=== PATIENT | female | born 1995 | race Caucasian/White ===

== ENCOUNTER 2024-10-25 03:27 | Inpatient (IN) | payer OTHER, SELFPAY ==
[2024-10-25 03:34] VITALS: BMI 37.2
[2024-10-25 03:55] VITALS: BP 133/67
[2024-10-25 04:24] LABS: Hematocrit 32.6 % (37.0-47.0); Mean Corp Hgb Conc. 33.7 g/dL (33.0-37.0); Mean Corpuscular Hgb 30.8 pg (27.0-31.0); Mean Corpuscular Volume 91.3 fL (81.0-99.0); Mean Platelet Volume 10.7 fL (7.4-10.4); Platelet Count 221 10^3/uL (130-400); Red Blood Cell Count 3.57 10^6/uL (4.20-5.40); Red Cell Dist. Width 13.1 % (11.5-14.5); White Blood Cell Count 8.4 10^3/uL (4.8-10.8)
[2024-10-25] MEDS: TYLENOL 1000 MG PO (05:48)
[2024-10-25] MEDS: ANCEF 10 IV (05:48)
[2024-10-25] MEDS: BICITRA 30 ML PO (05:48)
[2024-10-25] MEDS: ZITHROMAX INFUSION 250 IV (05:49)
[2024-10-25 06:34] LABS: Cord ABG Comment CORD BLOOD
[2024-10-25 06:40] LABS: B.E. Cord ABG -1.4 mMOL/L; HCO3 Cord ABG 22.8 mmol/L; O2 Saturation % Cord ABG 54.3 %; PCO2 Cord ABG 36 mmHg; PO2 Cord ABG 25 mmHg; pH Cord ABG 7.41
[2024-10-25 06:43] LABS: B.E. Cord ABG -2.3 mMOL/L; PCO2 Cord ABG 52 mmHg; PO2 Cord ABG 23 mmHg; pH Cord ABG 7.29
[2024-10-25 06:44] LABS: O2 Saturation % Cord ABG 32.2 %
[2024-10-25] MEDS: PITOCIN 30 UNITS/NSS 500 ML IV (09:21)
[2024-10-25] MEDS: CELEXA 40 MG PO (10:23)
[2024-10-25] MEDS: PRENATAL PLUS 1 TABLET PO (10:26)
[2024-10-25] MEDS: TORADOL 15 MG IV ×3 (12:07→23:53)
--- NOTE | 2024-10-25 21:51 | W.PN.ANS.POP ---
Anesthesia Post Operative
- Anesthesia Post Op Note
Vital Signs Stable-See Nursing Note: Yes
Airway Patent: Yes
Adequate Pain Control: Yes
Change in Mental Status: No
Current Postoperative Nausea & Vomiting: No
Anesthesia Complications: No
General Anesthetic Recall: No
Unplanned Admission: No
Post Op Hydration Adequate: Yes
[2024-10-26 05:59] LABS: Hematocrit 27.4 % (37.0-47.0); Hemoglobin 9.7 g/dL (12.0-16.0); Mean Corp Hgb Conc. 35.4 g/dL (33.0-37.0); Mean Corpuscular Hgb 31.4 pg (27.0-31.0); Mean Corpuscular Volume 88.7 fL (81.0-99.0); Mean Platelet Volume 11.1 fL (7.4-10.4); Platelet Count 179 10^3/uL (130-400); Red Blood Cell Count 3.09 10^6/uL (4.20-5.40); Red Cell Dist. Width 13.2 % (11.5-14.5); White Blood Cell Count 8.5 10^3/uL (4.8-10.8)
[2024-10-26] MEDS: TORADOL 15 MG IV (06:06)
[2024-10-26] MEDS: CELEXA 40 MG PO (09:04)
[2024-10-26] MEDS: PRENATAL PLUS 1 TABLET PO (09:04)
[2024-10-26] MEDS: SENOKOT-S 1 TABLET PO (09:05)
[2024-10-26 11:31] LABS: Syphilis/T. pallidum Ab Reflex Negative (Negative)
[2024-10-26] MEDS: TYLENOL 650 MG PO ×2 (13:41→19:48)
[2024-10-26] MEDS: MOTRIN 600 MG PO ×2 (13:41→19:48)
[2024-10-26] MEDS: MYLICON 80 MG PO (20:02)
--- NOTE | 2024-10-27 04:00 | DOWNTIME ---
There was a [employer] Downtime on 10/27/2024 from 0100 to 10/27/2024 at 0350. Downtime documentation of patient's care, including medication administrations, has been reconciled in the electronic record per guidelines. Refer to the
patient's paper chart under the miscellaneous tab to see printed paper medication records and downtime forms.
[2024-10-27] MEDS: MOTRIN 600 MG PO ×3 (06:19→22:17)
[2024-10-27] MEDS: TYLENOL 650 MG PO ×2 (06:19→23:54)
[2024-10-27] MEDS: PRENATAL PLUS 1 TABLET PO (08:23)
[2024-10-27] MEDS: CELEXA 40 MG PO (08:23)
[2024-10-27] MEDS: SENOKOT-S 1 TABLET PO (08:24)
[2024-10-27] MEDS: FEOSOL 325 MG PO (13:45)
[2024-10-28] MEDS: PRENATAL PLUS 1 TABLET PO (07:46)
[2024-10-28] MEDS: CELEXA 40 MG PO (07:46)
[2024-10-28] MEDS: FEOSOL 325 MG PO (07:46)
[2024-10-28] MEDS: SENOKOT-S 1 TABLET PO (07:46)
[2024-10-28] MEDS: MOTRIN 600 MG PO (07:53)
[2024-10-28] MEDS: TYLENOL 650 MG PO (07:54)
--- NOTE | 2024-10-28 11:15 | W.DS.TRANS ---
DC Summary - Product Lead
-
Discharge Instructions:
Discharge Diagnosis/Procedures repeat low transverse section;
asymptomatic anemia
Diet Regular
Activity No strenuous activity
Driving Restrictions No driving for 2 weeks
Bathing Restrictions OK to Shower
Instructions:
Stand-Alone Forms: LDRP Delivery
Changes to Home Medications: No
Discharge Medications:
DC Medications w/original date entered in [employer]
Tablet 1 cap PO DAILY Supplement 04/08/22
citalopram 40 mg tablet 40 cap PO DAILY Depression 04/08/22
acetaminophen 325 mg tablet 650 mg (2 x 325 mg) PO Q4HPRN PRN mild pain #0 tabs 10/27/24
ferrous sulfate 325 mg (65 mg iron) tablet (FeroSul) 325 mg PO DAILY #0 tabs 10/27/24
ibuprofen 600 mg tablet 600 mg PO Q6HPRN PRN cramps #0 tabs 10/27/24
sennosides 8.6 mg-docusate sodium 50 mg tablet 1 tab PO DAILYPRN PRN constipation #0 tabs 10/27/24
Home Medication Changes
Pending Results: Yes
Total time spent discharging patient (in min): 30
[2024-10-28] MEDS: ATIVAN 0.5 MG PO (11:27)
== END 2024-10-28 13:00 | disposition home or self-care (01) | DRG 788 ==
LOC: LDRP 03:27
PROVIDERS: ADMITTING PHYSICIAN Obstetrics & Gynecology; FAMILY PHYSICIAN Family Medicine
PROC: 10D00Z1 Extraction of Products of Conception, Low, Open Approach (ICD-10-PCS; 2024-10-25)
PROC: 6A550ZT Pheresis of Cord Blood Stem Cells, Single (ICD-10-PCS; 2024-10-25)
DX: O34.211 Maternal care for low transverse scar from previous cesarean delivery (principal); Z3A.37 37 weeks gestation of pregnancy; Z37.0 Single live birth; O69.81X0 Labor and delivery complicated by cord around neck, without compression, not applicable or unspecified; F32.A Depression, unspecified; F41.9 Anxiety disorder, unspecified; O99.344 Other mental disorders complicating childbirth
CPT/HCPCS: 88307; 82803; 85027; 86780; 86850; 86900; 86901

== ENCOUNTER 2025-09-15 11:17 | Emergency (ER) | payer OTHER, SELFPAY ==
[2025-09-15 11:19] VITALS: BP 140/77
[2025-09-15 11:52] LABS: HCG, Urine Qualitative Screen Negative
[2025-09-15] MEDS: TYLENOL 1000 MG PO (12:10)
[2025-09-15] MEDS: LIDOCAINE 4% PATCH 1 PATCH TOPICAL (12:11)
--- NOTE | 2025-09-15 12:23 | ED.MUSCINJ ---
HPI-Injury
General
Chief Complaint: Musculo-Skeletal Complaint
Time Seen by Provider: 09/15/25 11:31
Nursing documentation reviewed up to this point in time: agreed with
History of Present Illness-Injury
Initial Injury comments:
30-year-old female presents to the ER for evaluation of neck pain radiating to her right arm which has been progressing over the last 2 weeks. Patient denies any preceding injury or trauma. She states that she has been eating and drinking
normally. No prior manipulation to her neck. No prior neck surgery. No fevers or chills. She reports a feeling of clumsiness of the right hand along with numbness and tingling involving digits 2 and 3. She try to follow-up with her primary care
physician but could not get an appointment until December. She went to urgent care yesterday and was given prescription methocarbamol and Medrol Dosepak. She has taken some of these medications without improvement in her symptoms. She is
right-handed. She also is concerned because she just started her menstrual cycle in the middle of her OCP pack. She has not had any missed doses of her OCPs.
Past History
Past History
ED Past Medical History: None
ED Past Surgical History: None
Social History
Tobacco: Non-smoker
Personal: Single
Living: with family
Employment: Employed (emergency room clerk)
Review of Systems
Review of Systems
Allergies reviewed?: Yes
Phy Exam
Physical Exam
Physical Exam:
Patient is awake, alert, appears in no acute distress, head is NCAT, PERRL, EOMI mucous membranes moist, conjunctiva pink, no midline pain on palpation of cervical spine, moderate paraspinal hypertonicity noted in lower paracervical musculature and
bilateral trapezius, palpation on the right reproduces patient's symptoms, patient has equal hand grasp bilateral upper extremities, equal interosseous motor function, no weakness noted on opposition digits 1-2 and 1-5 symmetric, brisk cap refill
present to bilateral hands, extremities without edema, GCS is 15
Injury Course
Orders/Labs/Results
Orders:
Orders
09/15/25 11:32
Test Result ONCE
09/15/25 11:42
, Urine Qualitative Screen [HCG, Urine Qualitative Screen] Urgent
Date Specimen was Collected: 09/15/25
Time Specimen was Collected: 11:38
09/15/25 12:01
CR Cervical Spine 2 or 3 Vw Urgent
Comment:
Reason For Exam: pain
09/15/25 12:02
Acetaminophen [Tylenol] 1,000 mg PO NOW STA
Lidocaine [Lidocaine 4% Patch] 1 patch TOPICAL ONCE ONE
Apply Lidocaine patch(s) to:: posterior neck
MDM/Problems Addressed
Differential Diagnosis Includes:
Differential diagnosis considered but not limited to cervical radiculopathy, DJD, muscle spasm, peripheral neuropathy, along with other etiologies considered
*Radiology
Radiology exam reviewed: radiology read reviewed (IMPRESSION: There is mild degenerative disc disease at C6/7 There is straightening of the normal lordotic curvature which suggests muscular spasm)
*Pulse Oximetry
SaO2: 97
Oxygen Mode of Delivery: Room air
Patient hypoxic: no
*Critical Care Note
Total Time (30-74mins, 75-104mins- exclusive of procedures): Not Applicable
Update Note
Update Note:
I discussed with patient clinical exam most consistent with cervical radiculopathy. Will obtain x-ray of the cervical spine for further eval. I reviewed with patient current medications and advised her to continue taking Medrol Dosepak as
prescribed as she has had less than 24 hours of treatment with both this medication and the methocarbamol. Will add lidocaine patch along with Tylenol for additional pain relief. Will reassess
1305: Patient feeling better after medications administered. I reviewed with patient and mother now present at bedside x-ray findings consistent with degenerative change C6-C7. I discussed the medication usage at home. They felt comfortable with
plan for discharge. Will provide local referral for pain management. They have no questions at the current time.
ED Attending Note
-
Portions of this chart may have been created with voice recognition software.� Occasional wrong word or��sound alike� substitutions may have occurred due to the inherent limitations of voice recognition software.
Discharge Plan
Departure
Patient Disposition: Home (Routine Discharge)
Date of Disposition: 09/15/25
Time of Disposition: 13:05
Patient with high blood pressure during this ER visit?: No
Discharge Problem:
Cervical radiculopathy
Instructions: Radiculopathy of the neck and back (including sciatica) (DC)
Prescriptions:
No Action
citalopram 40 MG tablet
40 cap PO DAILY
Tablet
1 cap PO DAILY
acetaminophen 325 mg Tablet
650 mg PO Q4HPRN PRN (Reason: mild pain) Qty: 0 0RF
ferrous sulfate [FeroSul] 325 mg (65 mg iron) Tablet
325 mg PO DAILY Qty: 0 0RF
ibuprofen 600 mg Tablet
600 mg PO Q6HPRN PRN (Reason: cramps) Qty: 0 0RF
sennosides-docusate sodium 8.6-50 mg Tablet
1 tab PO DAILYPRN PRN (Reason: constipation) Qty: 0 0RF
Referrals:
Rich Hernandez MD [Active, Anesthesiology] - Next open appointment
NONE,* [Family Provider, Internal Medicine]
Stand Alone Forms: Return to Work
Activity Restrictions/Additional Instructions:
Continue current medications as prescribed. Add [id number] Extra strength Tylenol along with topical pain relieving patches (Salonpas or similar) to help with discomfort. Please follow-up with pain management as referred above. Return to
the ER for any concerns
Interventions
Interventions:
*Risk Screen - Suicide Last Done: 09/15/25 11:21
*General Assessment Last Done: 09/15/25 11:21
*Neglect/Abuse Screening Last Done: 09/15/25 11:21
*ED- Fall Risk Assessment Last Done: 09/15/25 11:21
*ED COVID-19 Vaccine History Last Done: 09/15/25 11:21
*ED Influenza Vaccine History Last Done: 09/15/25 11:21
ED-Musculoskeletal Assessment Last Done: 09/15/25 11:25
Discharge Date and Time
Print Language: [id number]
== END 2025-09-15 13:19 | disposition home or self-care (01) ==
LOC: EMR 11:17
PROVIDERS: EMERGENCY PHYSICIAN Emergency Medicine
DX: M50.123 Cervical disc disorder at C6-C7 level with radiculopathy (principal)
CPT/HCPCS: 99284; 72040; 81025